=== PATIENT | female | born 1940 | race Caucasian/White ===

== ENCOUNTER → 2024-02-06 09:35 | Outpatient (REF) | payer MEDICARE, OTHER, SELFPAY | LOC: HWRCS 09:35 | PROVIDERS: ATTENDING PHYSICIAN Physician Assistant | DX: G45.3 Amaurosis fugax (principal); E78.00 Pure hypercholesterolemia, unspecified | CPT/HCPCS: 93306 ==

== ENCOUNTER 2024-02-09 23:04 | Inpatient (IN) | payer MEDICARE, OTHER, SELFPAY ==
[2024-02-09 20:22] VITALS: BP 147/91
[2024-02-09 21:07] VITALS: BP 165/65
[2024-02-09 21:09] VITALS: BMI 15.3
--- NOTE | 2024-02-09 21:18 | ED.GENMED ---
History of Present Illness
General
Chief Complaint: Visual Problem
Time Seen by Provider: 02/09/24 21:01
History of Present Illness
History of Present Illness:
83-year-old female presents to the emergency department for admission for IV steroids. Patient has been undergoing outpatient workup through her primary care physician as well as ophthalmology for suspected giant cell arteritis. She initially
developed visual distortion as well as left facial swelling just over 1 week ago, saw her primary care physician 6 days ago at which time CRP was markedly elevated. She was started on prednisone 50 mg and was referred to ophthalmology. Saw
ophthalmology in consultation yesterday at which time retinal exam suggested signs of early optic nerve ischemia, biopsy was completed this morning. After the biopsy the patient reported worsening vision was recommended by her medical researcher
Pratik to seek admission for IV corticosteroids
Review of Systems
Review of Systems
Allergies reviewed?: Yes
All Other Systems: ROS reviewed and negative except as documented in HPI and ROS
Phy Exam
Physical Exam
Physical Exam:
GEN: Well appearing, NAD, WDWN
HEENT: Oral mucosa moist, no scleral icterus
Cardiac: Regular rate
Lung: No respiratory distress, no tachypnea
MSK: No gross deformity or injuries
Skin: Good color, no pallor or jaundice, no rashes
Neuro: AO x3, moves all extremities freely
Psych: Calm, cooperative
Course
Orders/Labs/Results
Orders:
Orders
02/09/24 21:28
CRP [C-Reactive Protein] Urgent
Complete Blood Count/With Diff Urgent
Comprehensive Metabolic Panel Urgent
02/09/24 21:34
MethylPREDNISolone. [Solu-Medrol] 1,000 mg 0.9% Sodium Chloride 250 ml [Nss] 250 ml IV NOW
02/09/24 22:38
Admit/Transfer Patient As Directed
Co-Sign Provider:
Level of Care: Inpatient admission
Assign to:: Medical/Surgical
Physician / Group: Mila Loja
Diagnosis: optic nerve ischemia/GCA
Reason for Hospitalization: optic nerve ischemia
Expected length of stay greater than two midnights?: Yes
ELOS- Estimated Length of Stay in days: 3
I certify the patient meets the requirements for IP care: Yes
PRN Pain Medication Management As Directed
May give lesser potent ordered pain med per pt: Yes
preference::
Protocol:: Medication orders for pain may be administered in a
manner that supports deferring to patient preference
when the pt is:
- Requesting an ordered lesser potent pain medication.
Least to most potent pain medications are defined
as: acetaminophen < NSAID < tramadol < opioids
(morphine, oxycodone, hydromorphone).
- Requesting a lesser dose of the same medication IF
ORDERED.
- Requesting a less intrusive route of administration
if both routes are prescribed by the provider (PO <
IV).
02/09/24 22:39
Code Status As Directed
Resuscitation Status: Full Code
Abnormal Lab Results
02/09/24
21:28
WBC 11.1 H 10^3/uL
(4.8-10.8)
RBC 4.10 L 10^6/uL
(4.20-5.40)
Hct 36.9 L %
(37.0-47.0)
Plt Count 571 H 10^3/uL
(130-400)
Abs Immat Gran (auto) 0.1 H 10^3/uL
(0-0.05)
Absolute Neuts (auto) 9.1 H 10^3/uL
(1.4-6.5)
Absolute Lymphs (auto) 1.0 L 10^3/uL
(1.2-3.4)
Absolute Monos (auto) 0.9 H 10^3/uL
(0.1-0.6)
Immature Gran % 1.0 H %
(0-0.5)
Neutrophils % 81.9 H %
(42.2-75.2)
Lymphocytes % 8.8 L %
(20.5-51.1)
Sodium 133 L mmol/L
(135-145)
Chloride 90 L mmol/L
(98-107)
Carbon Dioxide 33 H mmol/L
(22-30)
BUN 32 H mg/dl
(7-17)
Glucose 106 H mg/dl
(70-99)
Calcium 10.8 H mg/dl
(8.4-10.2)
C-Reactive Protein 14.30 H mg/L
(0.0-10.00)
02/09/24 21:28
02/09/24 21:28
Vital Signs
Initial and Last Documented VS:
Initial Vital Signs
Temp Pulse Resp BP Pulse Ox
98.1 F 77 15 147/91 100
02/09/24 20:22 02/09/24 20:22 02/09/24 20:22 02/09/24 20:22 02/09/24 20:22
Last Documented Vital Signs
Temp Pulse Resp BP Pulse Ox
98.1 F 77 15 145/65 100
02/09/24 20:22 02/09/24 20:22 02/09/24 20:22 02/09/24 22:00 02/09/24 22:30
MDM/Problems Addressed
MDM/Problems Addressed:
Discussed case with ophthalmology patient has fairly advanced symptoms that she warrants inpatient hospitalization for IV steroids. Vision was reportedly 20/80 at ophthalmology yesterday
*Critical Care Note
Total Time (30-74mins, 75-104mins- exclusive of procedures): Not Applicable
ED Attending Note
-
Portions of this chart may have been created with voice recognition software.� Occasional wrong word or��sound alike� substitutions may have occurred due to the inherent limitations of voice recognition software.
Discharge Plan
Departure
Patient Disposition: Admit
Date of Disposition: 02/09/24
Time of Disposition: 21:57
Admit to: Med/Surg
Presentation/result/management discussed w/ accepting MD/DO: Hospitalist
Discharge Problem:
GCA (giant cell arteritis)
Interventions
Interventions:
*Risk Screen - Suicide Last Done: 02/09/24 20:22
*General Assessment Last Done: 02/09/24 20:22
*Neglect/Abuse Screening Last Done: 02/09/24 20:22
ED- Fall Risk Assessment Last Done: 02/09/24 21:11
*ED COVID-19 Vaccine History Last Done: 02/09/24 21:11
ED- Neurological Assessment Last Done: 02/09/24 21:11
ED-EENT Assessment Last Done: 02/09/24 21:11
ED Swallowing Screen Last Done: 02/09/24 21:11
[2024-02-09 21:41] LABS: % Basophils 0.1 % (0-2); % Eosinophils 0.2 % (0-6); % Lymphocytes 8.8 % (20.5-51.1); % Neutrophils 81.9 % (42.2-75.2); Absolute Immature Granulocytes 0.1 10^3/uL (0-0.05); Absolute Monocytes 0.9 10^3/uL (0.1-0.6); Absolute Neutrophils 9.1 10^3/uL (1.4-6.5); Hematocrit 36.9 % (37.0-47.0); Hemoglobin 12.5 g/dL (12.0-16.0); Mean Corp Hgb Conc. 33.9 g/dL (33.0-37.0); Mean Corpuscular Hgb 30.5 pg (27.0-31.0); Mean Platelet Volume 8.7 fL (7.4-10.4); Nucleated Red Blood Cells % 0 %; Platelet Count 571 10^3/uL (130-400); Red Cell Dist. Width 12.4 % (11.5-14.5); White Blood Cell Count 11.1 10^3/uL (4.8-10.8)
[2024-02-09 21:54] LABS: ALT (SGPT) 28 U/L (0-35); AST (SGOT) 28 U/L (14-36); Albumin 3.8 g/dl (3.5-5.0); Alkaline Phosphatase 76 U/L (38-126); Blood Urea Nitrogen 32 mg/dl (7-17); Calcium 10.8 mg/dl (8.4-10.2); Carbon Dioxide 33 mmol/L (22-30); Chloride 90 mmol/L (98-107); Estimated Creatinine Clearance 38 ml/min; Glucose 106 mg/dl (70-99); Sodium 133 mmol/L (135-145); Total Bilirubin 0.4 mg/dl (0.2-1.3); Total Protein 6.4 g/dl (6.3-8.2); eGFR > 60.00
[2024-02-09 22:00] VITALS: BP 145/65
--- NOTE | 2024-02-09 22:12 | HPS.HSE ---
Family Physician
-
Family Physician: BETITO Cordero
Chief Complaint
-
sent in from Opthalmology Clinic
History of Present Illness
Ms. Janki Sweet is a 83 yo woman with hx essential HTN who has been undergoing outpatient evaluation and treatment for suspect giant cell arteritis, referred to ER for admission and initiation of IV steroids.
Patient states symptoms started one week ago when she had left facial flushing and change in vision. She had two episodes of losing vision in left eye that lasted about 15 minutes. She saw her PCP, was prescribed steroids and referred to
Ophthalmology. No headaches. No fevers. No muscle pain in shoulders or hips. Over past week she has noticed jaw pain with chewing and has an ulcer on her tongue. Temporal artery biopsy performed this morning. Concern for early optic nerve
ischemic and patient was transferred to [place] for IV steroids.
Currently she states that she feels she is looking through a haze. No eye pain.
No chest pain, no shortness of breath, no nausea/vomiting/diarrhea. No LE swelling.
Medical History
Past Medical History
Past Medical History: Reports HTN
Past Surgical History: Reports Other
Social History
Tobacco: Non-smoker
Alcohol: Occasional
Family History
Family History: Not pertinent
Allergies / Home Medications
Allergies reflects when Allergies were last updated in [employer].
Home Medications with original date entered in [employer]
Allergy/Medication List:
Allergies
Allergy/AdvReac Type Severity Reaction Status Date / Time
Sulfa (Sulfonamide Allergy throat Verified 04/11/17 13:57
Antibiotics) tightens
Home Medications
aspirin 81 mg chewable tablet 81 mg PO DAILY 02/09/24
lisinopril 10 mg tablet 10 mg PO HS 02/09/24
omega 7-cum-abp-fish oil 1,000 mg (120 mg-180 mg) capsule (Fish Oil) 1 cap PO NOON 02/09/24
peg 400-propylene glycol (PF) 0.4 %-0.3 % eye drops in a dropperette (Systane (PF)) 1 drp BOTH EYES Q6HPRN PRN dry eyes 02/09/24
plant stanol sonya 450 mg capsule (Cholest Off Plus) 900 mg PO NOON 02/09/24
prednisone 50 mg tablet 50 mg PO DAILY 02/09/24
Review of Systems
-
History Source: Patient
A 12 point ROS was completed and negative except as noted: Yes
Physical Exam
Vital Signs
Vital Signs
Temp Pulse Resp BP Pulse Ox
98.1 F 77 15 165/65 99
02/09/24 20:22 02/09/24 20:22 02/09/24 20:22 02/09/24 21:07 02/09/24 21:09
Physical Exam
General: No Apparent Distress
HEENT: PERRLA and Other (incision left temporal artery biopsy healing well )
Respiratory: Clear; No Wheezes
Cardiac: S1/S2 and Regular Rhythm
GI: Soft and Non Tender
Musculoskeletal: No Edema
Neuro: AO x 3
Psych: Calm
Laboratory Results
-
02/09/24 21:28
02/09/24 21:28
Laboratory Results
Total Bilirubin 0.4 mg/dl (0.2-1.3) 02/09/24 21:28
AST 28 U/L (14-36) 02/09/24 21:28
ALT 28 U/L (0-35) 02/09/24 21:28
Alkaline Phosphatase 76 U/L (38-126) 02/09/24 21:28
Troponin I Cancelled 02/09/24 21:17
Data Reviewed
-
Diagnostic Radiology: Report Reviewed by me
Lab Data: Labs Reviewed by me
Impression/Plan
-
Ms. Janki Sweet is a 83 yo woman with hx essential HTN who has been undergoing outpatient evaluation and treatment for suspect giant cell arteritis, referred to ER for admission and initiation of IV steroids.
Triage VS: T 98.1, P 77, RR 15, BP 147/91, SpO2 100%
LABS: WBC 11.1, Hg 12.5, PLT 571, Na 133, K+ 5.0, C 0.7, Glucose 106
MAR: Methylprednisolone 1G x 1
Early optic nerve Ischemia
Giant Cell Arteritis
-s/p biopsy earlier this morning
-referred to ER by Ophthalmology with recommendations of Solumedrol 1G q 24 hours x 3 doses (received first dose in ER)
-team to touch base with Dr. Jeff Christie tomorrow
Essential HTN
-ADVERTISING EDITOR Lisinopril
GI PPx with high dose steroids
DVT PPx SCD
FULL CODE
[2024-02-09] MEDS: SOLU-MEDROL 258 MG IV (22:17)
[2024-02-09 23:00] VITALS: BP 158/66
[2024-02-09 23:46] VITALS: BP 177/80; BMI 15.4
[2024-02-10] VITALS (8 sets, daily range): BP systolic 124–163; BP diastolic 47–84; BMI 15.4
[2024-02-10 06:41] LABS: Hemoglobin 11.9 g/dL (12.0-16.0); Mean Corpuscular Hgb 30.5 pg (27.0-31.0); Mean Corpuscular Volume 89.7 fL (81.0-99.0); Platelet Count 515 10^3/uL (130-400); Red Cell Dist. Width 12.3 % (11.5-14.5); White Blood Cell Count 7.7 10^3/uL (4.8-10.8)
[2024-02-10 07:46] LABS: Blood Urea Nitrogen 25 mg/dl (7-17); Calcium 9.8 mg/dl (8.4-10.2); Carbon Dioxide 31 mmol/L (22-30); Chloride 93 mmol/L (98-107); Estimated Creatinine Clearance 43 ml/min; Glucose 126 mg/dl (70-99); Magnesium 2.3 mg/dl (1.6-2.3); Potassium 4.7 mmol/L (3.5-5.1); Sodium 135 mmol/L (135-145); eGFR > 60.00
[2024-02-10] MEDS: PROTONIX 40 MG PO (08:39)
--- NOTE | 2024-02-10 10:16 | PTOTSP ---
Patient demonstrates safe and independent mobility, no skilled physical therapy needs at this time.
--- NOTE | 2024-02-10 11:53 | PTOTSP ---
pt currently demonstrates ability to complete simple ADLs, functional transfers, ambulation with no assistance. no overt deficits noted, no visual disturbances. no acute OT needs identified, will sign off.
[2024-02-10 13:55] LABS: Erythrocyte Sed Rate 17 mm/hour (0-20)
--- NOTE | 2024-02-10 14:47 | W.PN.HOSP.TC ---
Today's Communication/Plan
-
Continue IV steroids
MRI/MRA of the brain
Assessment / Plan
Assessment / Plan
Impression:
Janki Sweet is a 83 yo woman with hx essential HTN who has been undergoing outpatient evaluation and treatment for suspect giant cell arteritis, referred to ER for admission and initiation of IV steroids.
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
Early optic nerve ischemia on ophthalmologic exam.
Essential hypertension.
Weight loss moderate malnutrition BMI at 15.
Plan:
Intermittent left eye vision changes with bilateral jaw claudication, necrotic lesion on the left side of the tongue.
Above with concern for vasculitis/temporal arteritis.
Initiated empirically on oral prednisone at 50 mg with persistent symptoms.
Ophthalmologic exam with concern for optic neuritis/ischemia.
Temporal biopsy performed at ophthalmology office Dr. Jeff Christie on 02/08 with pending report.
Reported CRP around 100 while on oral prednisone.
With concern for optic nerve ischemia was sent to the emergency room for initiation of pulse dose of IV Solu-Medrol.
She reports persistent visual field cut on the left eye which is less likely amaurosis focus.
She has no focal neurologic findings otherwise.
Carotid ultrasound with no hemodynamically significant stenosis
Will order MRI of the brain and MRA of [place] and neck for further evaluation.
Follow sed rate/CRP.
Plan is to transition to oral prednisone after third dose of Solu-Medrol.
Outpatient ophthalmology/rheumatology follow-up.
Eventually may be candidate for biologic such as Actemra
Discussed with Dr. Jeff Christie over the phone.
Reports weight loss? If due to systemic vasculitis
Moderate calorie malnutrition with BMI 15
Check hemoglobin A1c.
Check TSH
Essential HTN
-SUPPLY CHAIN ASSOCIATE Lisinopril
GI PPx with high dose steroids
DVT PPx SCD
FULL CODE
Anticipated Discharge: 24 - 48 hours
Subjective/Interval History
-
Date of Service: February 10, 2024
Objective Data
-
Labs:
Laboratory Results
02/10/24
05:58
WBC 7.7
Hgb 11.9 L
Hct 35.0 L
Plt Count 515 H
Sodium 135
Potassium 4.7
Chloride 93 L
Carbon Dioxide 31 H
BUN 25 H
Creatinine 0.6
Glucose 126 H
Calcium 9.8
Vital Signs:
Vital Signs
Temp Pulse Resp BP Pulse Ox
97.7 F 101 16 157/83 100
02/10/24 07:00 02/10/24 07:00 02/10/24 07:00 02/10/24 07:00 02/10/24 07:00
I&O
02/09/24 02/10/24 02/11/24
06:59 06:59 06:59
Intake Total 120 / 120
Balance 120 / 120
Physical Exam
-
General: Well Developed and No Apparent Distress
HEENT: Normocephalic, Atraumatic and Moist Mucous Membranes
Respiratory: Clear to Auscultation
Cardiac: Regular Rhythm and S1/S2; Negative Murmur, Rub or Gallop
GI: Soft, Nontender, Nondistended and Normal Bowel Sounds; Negative Organomegaly
Rectal: Deferred by Provider
Musculoskeletal: No Clubbing, No Cyanosis and No Edema
Skin: Negative Rash
Neuro: Awake, Alert, Oriented, AO x 3 and Nonfocal/Grossly Intact
[2024-02-10 16:12] LABS: TSH 0.19 uIU/ml (0.47-4.68)
--- NOTE | 2024-02-10 16:14 | CM ---
Reviewed chart, met with patient to obtain information for assessment. Patient stated that she lives alone in a townhouse with no steps to enter. She is independent with her ADLs, personal care, bathing and dressing. She can do inspector open die,
cook, clean and do laundry. She drives and can get herself to all of her appointments and does all of her shopping.
She denied any DME.
She has not had VN services.
She has not been to a SNF.
Patient has a prescription plan and uses, [facility] in [place].
Patient's PCP is, Elba Esteban.
Plan: Case management will continue to follow and assist with discharge planning. Home when stable.
[2024-02-10] MEDS: SOLU-MEDROL 258 MG IV (20:59)
[2024-02-10] MEDS: NON-FORMULARY ITEM 1 UNIT PO (21:10)
[2024-02-11 07:00] VITALS: BP 156/86
[2024-02-11] MEDS: PROTONIX 40 MG PO (07:49)
--- NOTE | 2024-02-11 09:55 | W.PN.HOSP.TC ---
Addendum entered and electronically signed by Jessica Fritz MD 02/12/24 12:08:
Addendum for 02/11/24
Pt received third dose of IV solumedrol with no side effects noted
she tolerated diet ell
she asked to go home and felt stable to go
d/w nursing staff
Total discharge time spent to see the patient, examine the patient on the floor, review data and lab results, discuss discharge plan with patient, nursing staff around 65 minutes
Original Note:
Today's Communication/Plan
-
c/w steroid, move the dose to daytime
lidocaine rinse
c/w PPI
Tylenol PRN for jaw claudication
Check T4
Add supplements to diet
Assessment / Plan
Assessment / Plan
Physical Exam
-
General: Well Developed and No Apparent Distress. Thin/ weight loss
HEENT: Normocephalic, Atraumatic and Moist Mucous Membranes. Ulcer left lateral side of tongue
Respiratory: Clear to Auscultation
Cardiac: Regular Rhythm and S1/S2; Negative Murmur, Rub or Gallop
GI: Soft, Nontender, Nondistended and Normal Bowel Sounds; Negative Organomegaly
Musculoskeletal: No Clubbing, No Cyanosis and No Edema
Skin: Negative Rash
Neuro: Awake, Alert, Oriented, AO x 3 and Nonfocal/Grossly Intact
Psych: calm
Impression:
Janki Sweet is a 83 yo woman with hx essential HTN who has been undergoing outpatient evaluation and treatment for suspect giant cell arteritis, referred to ER for admission and initiation of IV steroids.
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
Early optic nerve ischemia on ophthalmologic exam.
Essential hypertension.
Weight loss moderate malnutrition BMI at 15.
Plan:
Intermittent left eye vision changes with bilateral jaw claudication, ulcerated lesion on the left side of the tongue.
Above with concern for vasculitis/temporal arteritis.
Initiated empirically on oral prednisone at 50 mg with persistent symptoms.
Ophthalmologic exam with concern for optic neuritis/ischemia.
Temporal biopsy performed at ophthalmology office Dr. Jeff Crhistie on 02/08 with pending report.
Reported CRP around 100 while on oral prednisone.
With concern for optic nerve ischemia was sent to the emergency room for initiation of pulse dose of IV Solu-Medrol. Will move the dose to daytime to avoid insomnia
She reports persistent visual field cut on the left eye which is less likely amaurosis focus.
She has no focal neurologic findings otherwise.
Carotid ultrasound with no hemodynamically significant stenosis
Will order MRI of the brain and MRA of [place] and neck for further evaluation.
Follow sed rate/CRP.
Plan is to transition to oral prednisone after third dose of Solu-Medrol.
Outpatient ophthalmology/rheumatology follow-up.
Eventually may be candidate for biologic such as Actemra
Discussed with Dr. Jeff Christie over the phone.
MRI brain no stroke
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
will do lidocaine rinse
Reports weight loss? If due to systemic vasculitis
Moderate calorie malnutrition with BMI 15
Check hemoglobin A1c 5.8
# Hyponatremia
# Low TSH
Check T4 level
Essential HTN
-ELECTRONIC ASSEMBLY Lisinopril
GI PPx with high dose steroids
DVT PPx SCD
FULL CODE
Total time spent to see the patient, examine the patient on the floor, review data and lab results, discuss treatment plan with patient, nursing staff around 55 minutes
Anticipated Discharge: 24 - 48 hours
Subjective/Interval History
-
Date of Service: February 11, 2024
No sob
No chest pain
still tongue ulcer
Objective Data
-
Vital Signs:
Vital Signs
Temp Pulse Resp BP Pulse Ox
97.4 F 99 17 156/86 99
02/11/24 07:00 02/11/24 07:00 02/11/24 07:00 02/11/24 07:00 02/11/24 07:00
I&O
02/10/24 02/11/24 02/12/24
06:59 06:59 06:59
Intake Total 120 / 120 618 / 618
Balance 120 / 120 618 / 618
[2024-02-11 10:01] LABS: Glycohemoglobin (HgbA1c) 5.8 % (4.0-5.6)
[2024-02-11] MEDS: TYLENOL 650 MG PO (13:19)
[2024-02-11] MEDS: SOLU-MEDROL 258 MG IV (13:56)
[2024-02-11 15:00] VITALS: BP 157/78
--- NOTE | 2024-02-12 11:57 | W.DCSUMMARY ---
Discharge Summary
Discharge Data
Date of Admission: 02/09/24
Date of Discharge: 02/11/24
-
Pending Results: No
Hospital Course
83 years old female who was referred from an ophthalmology office for intravenous steroid treatment. Patient was being evaluated and treated for suspected giant cell arteritis. Patient was having visual changes in addition to jaw pain and left
tongue ulceration. She did not have fevers or headaches. Temporal artery biopsy was performed in the outpatient setting and result was not available upon admission. Patient was taking oral prednisone but due to persistent her symptoms, she was
referred for intravenous steroid therapy. Patient received intravenous methylprednisolone 1000 mg for 3 doses. Patient tolerated the treatment well with no worsening of her vision or new symptoms. She did have joint pain upon chewing and
diagnosed with jaw claudication. She was able to tolerate diet. Imaging studies of the brain including MRI/MRA did not show acute findings. Patient remained hemodynamically stable and was discharged in stable condition to follow-up with her
doctors for further treatment. Patient was advised to continue oral prednisone therapy. Patient was given prescription for Protonix for gastrointestinal prophylaxis.
Discharge Plan
-
Patient Disposition: Home (Routine Discharge)
Discharge Diagnosis/Procedures: You were treated with IV steroid for suspected Giant cell arteritis. Continue on oral prednisone at 60 mg daily and follow with your doctors. Use protonix to provide GI prophylaxis.
Diet: As tolerated
Referrals:
Jeff Christie MD [Active] - in less than 1 week
Elba Appiah PA [Family Provider] - in one to two weeks
Prescriptions:
New
pantoprazole 40 mg Tablet,Delayed Release (Dr/Ec)
40 mg PO DAILY Qty: 30 0RF
Continued
lisinopril 10 mg Tablet
10 mg PO HS
aspirin 81 mg Tablet,Chewable
81 mg PO DAILY
omega 7-irc-gcn-fish oil [Fish Oil] 1,000 (120-180) mg Capsule
1 cap PO NOON
Cholest Off Plus 450 mg Capsule
900 mg PO NOON
Systane (PF) 0.4-0.3 % Dropperette
1 drp BOTH EYES Q6HPRN PRN (Reason: dry eyes)
Changed
prednisone 50 mg Tablet
60 mg PO DAILY Qty: 0 0RF
Patient Comments:
02/09/24: To take for 3 more days, then drop to 40mg daily.
Discharge Orders:
Discharge Patient (As Directed); Ordered 02/11/24
Ordered By: Jessica Fritz
Discharge Date and Time
Discharge Date/Time: 02/11/24 17:30
Print Language: ALGERIAN
== END 2024-02-11 17:30 | disposition home or self-care (01) | DRG 546 ==
LOC: 3 WEST ACU 23:04
PROVIDERS: Internal Medicine; Physician Assistant; ADMITTING PHYSICIAN Student in an Organized Health Care Education/Training Program; ATTENDING PHYSICIAN Internal Medicine; EMERGENCY PHYSICIAN Emergency Medicine; FAMILY PHYSICIAN Physician Assistant
DX: M31.6 Other giant cell arteritis (principal); E44.0 Moderate protein-calorie malnutrition; Z68.1 Body mass index [BMI] 19.9 or less, adult; E87.1 Hypo-osmolality and hyponatremia; R68.84 Jaw pain; K14.0 Glossitis; I10 Essential (primary) hypertension
CPT/HCPCS: 70544; 70548; 70551; 80048; 80053; 83036; 83735; 84443; 85025; 85027; 85652; 86140; 93306; 93880; 97161; 97165; 99285; A9585

== ENCOUNTER → 2024-04-12 14:20 | Outpatient (REF) | payer MEDICARE, OTHER, SELFPAY | LOC: WDC 14:20 | PROVIDERS: ATTENDING PHYSICIAN Physician Assistant | DX: Z12.31 Encounter for screening mammogram for malignant neoplasm of breast (principal) | CPT/HCPCS: 77063; 77067 ==

== ENCOUNTER → 2024-05-02 13:12 | Outpatient (REF) | payer MEDICARE, OTHER, SELFPAY | LOC: RAD 13:12 | PROVIDERS: ATTENDING PHYSICIAN Student in an Organized Health Care Education/Training Program; FAMILY PHYSICIAN Physician Assistant | DX: M31.6 Other giant cell arteritis (principal); M81.0 Age-related osteoporosis without current pathological fracture; Z79.52 Long term (current) use of systemic steroids | CPT/HCPCS: 77080; 77081 ==

== ENCOUNTER → 2024-05-24 08:57 | Outpatient (REF) | payer MEDICARE, OTHER, SELFPAY | LOC: RAD 08:57 | PROVIDERS: ATTENDING PHYSICIAN Student in an Organized Health Care Education/Training Program; FAMILY PHYSICIAN Physician Assistant | DX: I10 Essential (primary) hypertension (principal); Z79.52 Long term (current) use of systemic steroids; M31.6 Other giant cell arteritis; R76.11 Nonspecific reaction to tuberculin skin test without active tuberculosis | CPT/HCPCS: 71046; 76700 ==

== ENCOUNTER → 2024-07-30 15:14 | Outpatient (REF) | payer MEDICARE, OTHER, SELFPAY | LOC: RAD 15:14 | PROVIDERS: ATTENDING PHYSICIAN Student in an Organized Health Care Education/Training Program; FAMILY PHYSICIAN Physician Assistant | DX: R76.12 Nonspecific reaction to cell mediated immunity measurement of gamma interferon antigen response without active tuberculosis (principal) | CPT/HCPCS: 71046 ==

== ENCOUNTER → 2024-09-06 15:34 | Outpatient (REF) | payer MEDICARE, OTHER, SELFPAY | LOC: RAD 15:34 | PROVIDERS: ATTENDING PHYSICIAN Student in an Organized Health Care Education/Training Program; FAMILY PHYSICIAN Physician Assistant | DX: M31.6 Other giant cell arteritis (principal); M76.01 Gluteal tendinitis, right hip; M81.0 Age-related osteoporosis without current pathological fracture; Z79.52 Long term (current) use of systemic steroids | CPT/HCPCS: 73502 ==

== ENCOUNTER → 2024-10-18 08:53 | Outpatient (REF) | payer MEDICARE, OTHER, SELFPAY | LOC: MRI 08:53 | PROVIDERS: ATTENDING PHYSICIAN Student in an Organized Health Care Education/Training Program; FAMILY PHYSICIAN Physician Assistant | DX: M25.551 Pain in right hip (principal); M81.0 Age-related osteoporosis without current pathological fracture; Z79.52 Long term (current) use of systemic steroids | CPT/HCPCS: 73723; A9575 ==

== ENCOUNTER → 2024-12-31 06:59 | Outpatient (REF) | payer MEDICARE, OTHER, SELFPAY | LOC: PAVMRI 06:59 | PROVIDERS: ATTENDING PHYSICIAN Orthopaedic Surgery; FAMILY PHYSICIAN Physician Assistant; REFERRING PHYSICIAN Student in an Organized Health Care Education/Training Program | DX: M54.50 Low back pain, unspecified (principal) | CPT/HCPCS: 72148 ==

== ENCOUNTER → 2025-04-19 12:41 | Outpatient (REF) | payer MEDICARE, OTHER, SELFPAY | LOC: WDC 12:41 | PROVIDERS: ATTENDING PHYSICIAN Physician Assistant | DX: Z12.31 Encounter for screening mammogram for malignant neoplasm of breast (principal) | CPT/HCPCS: 77063; 77067 ==